=== PATIENT | male | born 1970 | race Two or more races ===

== ENCOUNTER 2020-03-04 06:33 | Day surgery (SDC) | payer OTHER | END 2020-03-04 12:40 | disposition home or self-care (01) | LOC: AMB-ENDOS 06:33 | PROVIDERS: ATTEND Internal Medicine Gastroenterology | DX: D12.4 Benign neoplasm of descending colon (principal); D12.8 Benign neoplasm of rectum; K29.50 Unspecified chronic gastritis without bleeding; Z20.828 Contact with and (suspected) exposure to other viral communicable diseases; K44.9 Diaphragmatic hernia without obstruction or gangrene ==